=== PATIENT | female | born 1985 | race Caucasian/White ===

== ENCOUNTER → 2018-09-28 | Outpatient (CLI) | payer OTHER, SELFPAY ==
[2018-09-28 11:13] LABS: Hematocrit 40.7 % (37-47); Hemoglobin 13.8 g/dl (12.0-15.0); Mean Corp Hgb Conc 33.9 g/gl (32-36); Mean Corpuscular Hgb 31.4 pg (27.0-32.0); Mean Corpuscular Volume 92.7 fL (81-99); Mean Platelet Vol. 10.6 fl (6.2-12.0); Platelet Count 162 K/mm3 (150-450); RBC Distribution Width CV 13.4 % (11.6-14.6); RBC Distribution Width SD 44.1 fl (35.1-43.9); Red Blood Count 4.39 M/mm3 (4.2-5.4); White Blood Count 9.6 K/mm3 (4.4-11.0)
[2018-09-28 11:17] LABS: Scan Indicated on CBC? Y/N NO
[2018-09-28 11:20] LABS: ALB/GLOB Ratio 0.7 RATIO (0.9-2.4); AST(SGOT) 27 U/L (15-37); Alanine Aminotransfer ALT/SGPT 39 U/L (13-56); Albumin, Serum 2.7 g/dL (3.2-5.0); Alkaline Phosphatase 134 U/L (45-117); Anion Gap 7 (5-15); BUN 7 mg/dL (7-18); BUN/Creat Ratio 13.7 RATIO (10-20); Calcium,Total 8.5 mg/dL (8.5-10.1); Chloride 105 mmol/L (98-107); Creatinine, Serum 0.51 mg/dL (0.55-1.02); EST Glomerular Filtration Rate 146 mL/min (>60); Est Glom Filt Rate - Afr Amer 176 mL/min (>60); Globulin 4.1 g/dL (2.2-4.2); Glucose 78 mg/dL (74-106); Potassium 3.9 mmol/L (3.5-5.1); Protein, Total 6.8 g/dL (6.4-8.2); Sodium Level 136 mmol/L (136-145); Uric Acid 4.4 mg/dL (2.6-6.0)
== END | disposition home or self-care (01) ==
PROVIDERS: Visit Provider Obstetrics & Gynecology
DX: O13.3 Gestational [pregnancy-induced] hypertension without significant proteinuria, third trimester (principal); Z3A.00 Weeks of gestation of pregnancy not specified
CPT/HCPCS: 36415; 80053; 84550; 85027

== ENCOUNTER → 2018-09-30 | Outpatient (CLI) | payer OTHER, SELFPAY ==
[2018-09-30 10:24] LABS: 24 Hour Urine Protein 209.4 mg/24HR (<150 MG/24HR); 24HR. UA Prot. Total Volume 1675 mL; Urine Protein (24 Hour) 12.5 mg/dL (<11.9)
== END | disposition home or self-care (01) ==
LOC: LABSPEC 09:28
PROVIDERS: Visit Provider Obstetrics & Gynecology
DX: O13.9 Gestational [pregnancy-induced] hypertension without significant proteinuria, unspecified trimester (principal); Z3A.00 Weeks of gestation of pregnancy not specified
CPT/HCPCS: 81050; 84156

== ENCOUNTER 2018-10-04 09:40 | Inpatient (IN) | payer OTHER, SELFPAY ==
[2018-10-04] VITALS (18 sets, daily range): BP systolic 117–148; BP diastolic 67–93; PULSE 71–97; RESP 12–18; TEMP 36.2–36.7; O2SAT 96–99; BMI 29.9
[2018-10-04 10:28] LABS: Absolute Lymphocyte Count 1.41 X10^3/ul (0.83-4.51); Absolute Neutrophil Count 6.1 X10^3/uL (2.0-7.7); Basophil# 0.02 X10^3/uL; Basophil% 0.2 % (0-1); Eosinophil# 0.04 X10^3/uL; Eosinophils% 0.5 % (0-5); Hematocrit 41.4 % (37-47); Hemoglobin 14.3 g/dl (12.0-15.0); Lymphocyte # 1.41 X10^3/ul (4.0); Lymphocyte % 17.5 % (19-41); Mean Corp Hgb Conc 34.5 g/gl (32-36); Mean Corpuscular Hgb 31.8 pg (27.0-32.0); Mean Platelet Vol. 10.7 fl (6.2-12.0); Monocyte# 0.43 X10^3/uL; Monocyte% 5.3 % (0-10); Neutrophil # 6.13 X10^3/uL (2.7-7.7); Neutrophil % 75.9 % (47-70); POSITIVE COUNT NO; POSITIVE DIFFERENTIAL NO; POSITIVE MORPHOLOGY NO; Platelet Count 171 K/mm3 (150-450); RBC Distribution Width CV 13.3 % (11.6-14.6); RBC Distribution Width SD 43.6 fl (35.1-43.9); White Blood Count 8.1 K/mm3 (4.4-11.0)
[2018-10-04] MEDS: Lactated Ringers 1,000 ML 999 ML IV (10:33)
[2018-10-04 10:48] LABS: International Normalized Ratio 0.9; Prothrombin Time (Protime)PT. 12.2 SECONDS (11.7-14.9)
[2018-10-04 10:49] LABS: Partial Thromboplast Time 25.2 Seconds (24.1-36.2)
[2018-10-04] MEDS: Lactated Ringers 1,000 ML 150 ML IV (11:12)
[2018-10-04] MEDS: Sodium Citrate/Citric Acid 30 ML UDC PO (11:40)
--- NOTE | 2018-10-04 12:00 | HP.PCM_ITS ---
- Problem List (1) 38 weeks gestation of Status: Acute (2) Gestational hypertension Status: Acute Qualifiers: Trimester: third trimester Qualified Code(s): O13.3 - Gestational [-induced] hypertension without significant proteinuria, third trimester History and Physical Date of Admission: 10/04/18 Date: 10/04/2018 Name: MYRIAM MCCLELLAND Age: 33 Date of : 1985 Myriam Mcclelland, a 33 year old female 2 para 1 0 0 1, presents for Repeat on October 04, 2018 at 12:00 with gestational hypertension. [facility] MEDICATIONS HISTORY: Current medications prescribed by our practice are: 1. Protonix 40 mg tablet,delayed release, one tab PO daily 2. Zofran 4 mg tablet, one tab PO every 6 hours prn nausea Patient is also takin. fish oil-dha-epa 1,200 mg-144 mg-216 mg capsule, One pill by mouth once a day ALLERGIES: NKDA Infections - Bronchitis, Chicken pox, influenza 2017, strep throat, walking pneumonia Illnesses - anxiety- mild. Accidents - no injuries of consequence Hospitalizations - Childbirth Review of Systems: SOCIAL HISTORY: Alcohol Use - socially not while Smoking - Was social smoker. Rare in the past year. Diet - balanced Diet and Quit coffee. Water intake tries for one quart daily. Lifestyle - low stress lifestyle and Exercise - Active work. Enc to walk 20 min daily. Seat Belt Use - most of the time Employer - [employer]. Job Description - dialysis in 8 hospitals. Illicit Drug Use - denies use of street drugs Sexual Activity - multiple sexual partners and in the past Residence - 2 story home live w and son and two dogs. Place of - [place] Hours Worked - 40 hours per week Spouse-Sig Other Name - Conrado Spouse-Sig Other Occupation - food production machine operator Spouse-Sig Other Phone No - [phone] Children Name(s) - Bert Control - FAMILY HISTORY: Father: Hypertension. Maternal Grandfather: Prostate cancer. Paternal Grandmother: Hypertension. Paternal Grandfather: ? cancer. MENSTRUAL HISTORY: LMP Known?- DefiniteAmount/Duration - 5 days, Regularity - Regular, Frequency - monthly days, LMP - 01/09/18, Age Onset Menarche - 11 PAST PREGNANCIES: Total Pregnancies - 2; Full Term Pregnancies - 1; Premature - 0; Abortions, Induced - 0; Abortions, Spontaneous - 0; Ectopics - 0; Multiple Births - 0; Living Children - 1 SURGICAL HISTORY: 1. liposuction 2015 ; - 2. 11/22/2003 breast augmentation ; - 3. 06/14/2009 primary c section ; - PHYSICAL EXAM BP- 122/87 Sitting, Right arm, regular cuff Weight- 142.50674 lbs Height- 63.50 inch BMI:24.81 CONSTITUTIONAL - NAD, well nourished, and well developed SKIN - No rash, lesions, or ulcers HEENT - Normocephalic, PERRLA, EOMI NECK - No nodes, no nuchal rigidity and thyroid normal size and texture LUNGS - CTA x2 without wheezes, crackles or rales CARDIAC - Regular rate and rhythm without rubs, murmurs, or gallops ABDOMEN - Without hepatosplenomegaly, distention, masses, rebound, or guarding; normal bowel sounds; no hernias; gravid EXTREMITIES - No edema or calf tenderness NEUROLOGICAL - no gross motor deficits PSYCHIATRIC - A and O to time, place, person, mood and affect UTERUS - 38w size FHR 125 bpm ASSESSMENT/PLAN: 1. Gestational hypertension 2. History prior section Proceed with section as planned. Consents signed. Blood transfusion acceptable. Patient given opportunity to ask questions and questions answered to her satisfaction.
[2018-10-04] MEDS: Cefazolin 2 GM in 0.9% Normal Saline 100 ML IV (12:02)
[2018-10-04] MEDS: Oxytocin 30 units/NS 500 ml 30 UNITS/500 ML IV.SOLN 167 UNITS IV (12:35)
--- NOTE | 2018-10-04 13:01 | PCM.OPRPT ---
Problem List (1) 38 weeks gestation of Status: Acute (2) Gestational hypertension Status: Acute Qualifiers: Trimester: third trimester Qualified Code(s): O13.3 - Gestational [-induced] hypertension without significant proteinuria, third trimester Report of Operation Date of Procedure: 10/04/18 Pre-Operative Diagnosis: 38 2/7 weeks gestation, gestational hypertension, prior Post-Operative Diagnosis: 38 2/7 weeks gestation, gestational hypertension, Prior Surgery/Procedure Performed:: Repeat low transverse section Description of Surgical Findings:: normal uterus and adnexa FEMALE - 3166g Apgars 9,9 desulfurizer operator: Ruth Chaudhary Type of Anesthesia:: Spinal Anesthesiologist: Mika Chandler Estimated Blood Loss (mL): 600 Fluids Replaced: 1500 ml Description of Procedure: The patient was taken to the operating room, sign in performed and spinal analgesia was administered. She is placed in a dorsal supine position with left lateral tilt. The perineum and abdomen were prepped and draped in sterile fashion. And the spinal was found to be adequate. A Pfannenstiel incision was made using a scalpel and brought down to incise the subcutaneous tissue and rectus fascia at the midline. Subcutaneous tissue was bluntly dissected off the fascia laterally. The fascial incision was dissected laterally and cephalad using curved Navarrete scissors. The superior leaflet of the rectus fascia was grasped using Donell clamps and bluntly dissected and sharply dissected from the underlying rectus muscle. In a similar fashion the inferior rectus fascia was dissected from the underlying muscle. The rectus muscles were bluntly at the midline. The peritoneum was identified and entered sharply. The peritoneal incision was extended. The bladder blade was placed into the abdomen and the vesicouterine peritoneal fold identified. The fold was incised and a bladder flap created. Bladder blade was then repositioned to the abdomen. A low transverse hysterotomy was made using the [Metzenbaum scissors] to level of the membranes. The hysterotomy was extended bluntly cephalad and caudad. The membranes were then ruptured revealing clear fluid. The head was elevated and brought to the level of the hysterotomy and the delivered revealing vigorous [female] infant. The cord was doubly clamped and cut after 60 seconds. The infant was passed to awaiting [nursery personnel]. The placenta was [expressed] from the uterus and appeared intact on inspection. The uterus was cleared of debris. The hysterotomy was then repaired using 0 Vicryl running lock suture. A second imbricating layer was also placed for additional hemostasis. The bladder blade was removed. The anterior cul-de-sac was cleared of debris. The peritoneum was reapproximated using 2-0 Vicryl running suture. The rectus fascia was closed using 0 STratafix running suture. The subcutaneous tissue was reapproximated using 2-0 Vicryl. The skin was closed using 4-0 Monocryl subcuticularly by the OTR FLATBED DRIVER under my supervision. Mepilex occlusive dressing was placed over the incision. The fundus was firm. The patient was then transferred to the recovery room without complication. Sponge, instrument, and needle counts were correct ?2. - Complications none - Admit VTE Documentation VTE Present on Admission: No VTE Mechan Device Prophylaxis: SCD's VTE Pharm Prophylaxis ordered?: No
[2018-10-04] MEDS: Lactated Ringers 1,000 ML 100 ML IV ×2 (13:20→23:48)
[2018-10-04] MEDS: Ketorolac 30 MG/ML Syringe IV (19:09)
[2018-10-04] MEDS: Acetaminophen 500 MG Tablet 1000 MG PO (23:47)
[2018-10-05] VITALS (11 sets, daily range): BP systolic 117–128; BP diastolic 58–86; PULSE 68–91; RESP 14–18; TEMP 36.7–36.9; O2SAT 94–98
[2018-10-05] MEDS: Ketorolac 30 MG/ML Syringe IV ×4 (01:01→18:44)
[2018-10-05 05:28] LABS: Hematocrit 32.6 % (37-47); Mean Corp Hgb Conc 33.7 g/gl (32-36); Mean Corpuscular Hgb 31.9 pg (27.0-32.0); Mean Corpuscular Volume 94.5 fL (81-99); Mean Platelet Vol. 10.1 fl (6.2-12.0); Platelet Count 151 K/mm3 (150-450); RBC Distribution Width CV 13.2 % (11.6-14.6); RBC Distribution Width SD 43.5 fl (35.1-43.9); Red Blood Count 3.45 M/mm3 (4.2-5.4); Scan Indicated on CBC? Y/N NO; White Blood Count 9.1 K/mm3 (4.4-11.0)
[2018-10-05] MEDS: Acetaminophen 500 MG Tablet 1000 MG PO (10:45)
[2018-10-05] MEDS: Senna/Docusate Sodium 1 Tablet PO (10:45)
[2018-10-05] MEDS: Pantoprazole Sodium 40 MG Tablet PO (10:46)
[2018-10-05] MEDS: Prenatal Vits Tablet 1 TABLET PO (10:46)
[2018-10-05] MEDS: 0.9% Saline Lock 10 ML Syringe IV (13:42)
[2018-10-06] VITALS (7 sets, daily range): BP systolic 118–132; BP diastolic 68–94; PULSE 68–98; RESP 14–18; TEMP 36.7–37.1
[2018-10-06] MEDS: Ibuprofen 600 MG Tablet PO ×3 (02:21→23:52)
[2018-10-06] MEDS: Acetaminophen 500 MG Tablet 1000 MG PO ×2 (04:24→17:47)
--- NOTE | 2018-10-06 07:50 | PCM.PN.OB ---
Subjective: POD#2 Repeat C/S Doing OK. Nursing well. CC of BOWER bilateral temporal, pounding in nature. pain also at neck to occipital region. Pain at lower back. BOWER is not positional, does not resolve with lying flat. is taking ONLY Tylenol and ibuprofen. Has not taken any narcotic pain med. No h/o BOWER. concerns about taking med with nursing. Objective: Sitting up in bed, holding sleeping baby - Physical Exam General: Alert, Oriented x3, Cooperative, No apparent distress HEENT: Atraumatic, EOMI Neck: Supple Abdomen: Soft - minimally tender c/w postop status. Fundus firm NT approx 2 cm inferior to umbilicus Skin: Incision - Mepilex dressing CDI. Neurological: Cranial nerves II-XII grossly intact Psych/Mental Status: Normal Affect Vital Signs Temp Pulse Resp BP Pulse Ox 98.1 F 98 18 127/94 H 97 // 02:00 10/06/18 02:00 10/06/18 02:00 10/06/18 02:00 10/05/18 20:10 Oxygen Delivery Method Room Air Weight: 76.6 kg Body Mass Index (BMI) 29.9 Intake and Output for Last 24 Hours 07//08 10/16/08 10/17 23:59 23:59 23:59 Intake Total 3755 / 3755 1620 / 1620 Output Total 1100 / 1100 1700 / 1700 Balance 2655 / 2655 -80 / -80 Medical Necessity - Tobacco Use Smoking Status: Never smoker Assessment/Plan All Active Problems 38 weeks gestation of (Acute) Gestational hypertension (Acute) POD#2 Repeat C/S Stable postop. Nursing well. Continue care. Prefers to stay today. #2) BOWER and pain lower back. BOWER not positional. Recommend: OxyIR 5 mg po q 6 hr . If this ineffective, trial of Fioricet. Suspect BOWER more due to stress, sleep deprivation. Continue care.
[2018-10-06] MEDS: Senna/Docusate Sodium 1 Tablet PO (08:59)
[2018-10-06] MEDS: Acetaminophen/Butalbital/Caffe 1 Tablet 2 TABLET PO (08:59)
[2018-10-06] MEDS: Prenatal Vits Tablet 1 TABLET PO (13:13)
[2018-10-06] MEDS: Pantoprazole Sodium 40 MG Tablet PO (13:14)
[2018-10-06] MEDS: oxyCODONE 5 MG Tablet PO (21:17)
[2018-10-07] MEDS: Acetaminophen 500 MG Tablet 1000 MG PO ×2 (02:15→09:52)
[2018-10-07 02:19] VITALS: BP 122/77; PULSE 78; RESP 18; TEMP 36.2
[2018-10-07] MEDS: Ibuprofen 600 MG Tablet PO ×2 (06:00→12:50)
--- NOTE | 2018-10-07 06:02 | PCM.PN.OB ---
Subjective: POD#3 Repeat C/S Feeling much better today. After discussion yesterday she laid down flat and noted no BOWER then. Epidural blood patch placed and this has worked very well. Denies any BOWER. Some pain at incision. States that the ibuprofen is working well for this and does not plan to take OxyIR. Breast feeding. No concerns voiced and would like to go home today. Asking about incision care -- states had joan with her first baby. - Physical Exam General: Alert, Oriented x3, Cooperative, No apparent distress HEENT: Atraumatic, EOMI Neck: Supple Abdomen: Soft - Fundus firm, minimally tender at 1-2 cm inferior to umbilicus. Skin: Incision - Mepilex dressing CDI. Neurological: Cranial nerves II-XII grossly intact Psych/Mental Status: Normal Affect Vital Signs Temp Pulse Resp BP Pulse Ox 97.1 F L 78 18 122/77 H 97 /18/ 02:19 /18/19 02:19 18/ 02:19 18/ 02:19 10/05/18 20:10 Oxygen Delivery Method Room Air Weight: 76.6 kg Body Mass Index (BMI) 29.9 Intake and Output for Last 24 Hours 07/16/19 /17/19 /18/19 23:59 23:59 23:59 Intake Total 1620 / 1620 Output Total 1700 / 1700 Balance -80 / -80 Medical Necessity - Tobacco Use Smoking Status: Never smoker Assessment/Plan All Active Problems 38 weeks gestation of (Acute) Gestational hypertension (Acute) POD#3 Repeat C/S Stable postop. Nursing well. Continue care. #2) BOWER and pain lower back. Spinal BOWER, full resolution after epidural blood path. Dischg home today. RTO in 1-2 wk for postop incision check.
--- NOTE | 2018-10-07 06:07 | PCM.DC.SUM ---
Discharge Date and Diagnosis Date of Admission: 10/04/18 - 38 2/7 wk gest HTN. Repeat C/S Date of Discharge: 10/07/18 - Same Spinal BOWER, resolved. Hospital Course and Treatment Operations: - - Repeat C section delivery. Epidural blood patch Summary of Care Provided: The patient is a 33 year old female presents for repeat C section at 38 2/7 wk EGA with gestational HTN. Admitted for repeat C/S on 10/04/18 . Delivery/ surgery uncomplicated; delivered a branham viable female. Ap 9/9 3166 gm/ Preop Hgb 14.3 g/dl Postop Hgb 11.0 g/dl AVSS Postoperative course complicated by spinal BOWER . Epidural blood patch placed on POD#2 with full resolution of BOWER. Requesting disvchg home POD#3. Home RTO in 1-2 wk for postop incision check, prn sooner. - Physical Exam Vital Signs Temp Pulse Resp BP Pulse Ox 97.1 F L 78 18 122/77 H 97 10/07/18 02:19 10/07/18 02:19 10/07/18 02:19 10/07/18 02:19 10/05/18 20:10 Oxygen Delivery Method Room Air Weight: 76.6 kg Body Mass Index (BMI) 29.9 Intake and Output for Last 24 Hours 10/05/18 10/06/18 10/07/18 23:59 23:59 23:59 Intake Total 1620 / 1620 Output Total 1700 / 1700 Balance -80 / -80 Home Medications: Medications to take at Discharge Pantoprazole Sodium [Protonix] 40 mg PO DAILY 10/04/18 Vits [Prenatabs FA] 1 tab PO DAILY 10/04/18 Medical Necessity - Tobacco Use Smoking Status: Never smoker Meaningful Use Info Meaningful Use Diagnoses (Choose all that apply): None applicable
[2018-10-07 09:15] VITALS: BP 131/84; PULSE 78; RESP 16; TEMP 36.4
[2018-10-07] MEDS: Prenatal Vits Tablet 1 TABLET PO (09:52)
[2018-10-07] MEDS: Pantoprazole Sodium 40 MG Tablet PO (09:52)
--- NOTE | 2018-10-07 12:40 | DCINST_ITS ---
Discharge Diet: No Restrictions Discharge Activity: May not drive while taking narcotic pain medications., May Shower, May Take a Tub Bath May resume sexual activity in: 4-6 weeks Additional Activity Instructions:: Nothing in the vagina for 4-6 weeks. You may return to work/school in 6 weeks. Change Dressing in (Days):: 7 Remove Dressing in (days):: 7 Cleanse incision/area with: Soap & Water, Keep Dressing Clean & Dry Additional Instructions: If you experience any of the following, contact your healthcare provider. * Bleeding that soaks a pad every hour for 2 hours * Fever 100.4 or higher * Unrelieved incision or abdominal pain * Swelling, redness, discharge or bleeding from your incision * Problems urinating (including inability to urinate or burning while urinating). * Visual changes * Severe headache * Flu-like symptoms * Pain or redness in one of both of your breasts * Pain, warmth, tenderness or swelling in your legs, especially the calf area * Frequent nausea and vomiting * Symptoms of depression or anxiety If you experience any of the following, call 911 or go to the nearest Emergency Room. * Chest pain * Problems breathing * Seizure activity * Partial or complete paralysis of a body part, slurred speech, weakness or drooping of the face, or a sudden inability to walk or hold your balance Allergies/Adverse Reactions: Allergies No Known Allergies Allergy (Verified 10/04/18 10:05) Medications to take at Discharge Pantoprazole Sodium [Protonix] 40 mg PO DAILY 10/04/18 Vits [Prenatabs FA] 1 tab PO DAILY 10/04/18 Ibuprofen [Motrin] 600 mg PO Q6H PRN PRN #30 tab 10/07/18 Senna/Docusate Sodium [Senokot-S] 1 - 2 tab PO DAILY PRN #20 tab 10/07/18 The following prescriptions were given: Ibuprofen [Motrin] 600 mg PO Q6H PRN PRN #30 tab PRN Reason: Mild Pain () Transmission Status: Pending to [facility] Senna/Docusate Sodium [Senokot-S] 1 - 2 tab PO DAILY PRN #20 tab PRN Reason: Constipation Transmission Status: Pending to [facility] Follow-Up: Call to make an appointment with your doctor for an incision check in 1-2 weeks. You will also need a 6 week post- follow up appointment. Test results from this visit will be discussed in further detail at your follow- up appointment, if applicable. Please Follow Up With: Caro Burton MD - [phone] When: Call to make an appointment for an incision check in 2 weeks. Proposed Discharge Date: 10/07/18
== END 2018-10-07 13:10 | disposition home or self-care (01) | DRG 788 ==
PROVIDERS: Admitting Provider Obstetrics & Gynecology; Referring Provider Obstetrics & Gynecology; Visit Provider Obstetrics & Gynecology
PROC: 10D00Z1 Extraction of Products of Conception, Low, Open Approach (ICD-10-PCS; CPT 59514; principal; 2018-10-04 11:45)
DX: O13.4 Gestational [pregnancy-induced] hypertension without significant proteinuria, complicating childbirth (principal); Z3A.38 38 weeks gestation of pregnancy; Z37.0 Single live birth; O89.4 Spinal and epidural anesthesia-induced headache during the puerperium
CPT/HCPCS: 85025; 85027; 85610; 85730; 86850; 86900; 99218; J7120; A4216; G0378; J2405

== ENCOUNTER → 2018-10-09 10:00 | Outpatient (CLI) | payer OTHER, SELFPAY ==
[2018-10-04 09:59] VITALS: BMI 29.9
== END ==
PROVIDERS: Visit Provider Obstetrics & Gynecology
DX: O92.79 Other disorders of lactation (principal)
CPT/HCPCS: 96152

== ENCOUNTER → 2018-10-21 | Outpatient (CLI) | payer OTHER, SELFPAY ==
[2018-10-04 09:59] VITALS: BMI 29.9
== END | disposition home or self-care (01) ==
PROVIDERS: Referring Provider Obstetrics & Gynecology; Visit Provider Obstetrics & Gynecology
DX: Z39.1 Encounter for care and examination of lactating mother (principal)
CPT/HCPCS: 96152

== ENCOUNTER → 2018-12-25 12:55 | Outpatient (CLI) | payer OTHER, SELFPAY ==
[2018-10-04 09:59] VITALS: BMI 29.9
== END ==
PROVIDERS: Referring Provider Obstetrics & Gynecology; Visit Provider Obstetrics & Gynecology
DX: O92.79 Other disorders of lactation (principal)
CPT/HCPCS: 96152

== ENCOUNTER → 2019-05-10 11:55 | Outpatient (CLI) | payer OTHER, SELFPAY ==
[2018-10-04 09:59] VITALS: BMI 29.9
== END ==
PROVIDERS: Referring Provider Obstetrics & Gynecology; Visit Provider Obstetrics & Gynecology
DX: O92.79 Other disorders of lactation (principal)
CPT/HCPCS: 96158

== ENCOUNTER → 2020-09-26 09:59 | Outpatient (CLI) | payer BC, OTHER, SELFPAY ==
[2018-10-04 09:59] VITALS: BMI 29.9
[2020-09-26 12:45] LABS: Hematocrit 46.2 % (37-47); Hemoglobin 15.3 g/dL (12.0-15.0); Mean Corp Hgb Conc 33.1 g/dL (32-36); Mean Corpuscular Volume 93.5 fL (81-99); Mean Platelet Vol. 9.9 fl (6.2-12.0); Platelet Count 275 K/mm3 (150-450); RBC Distribution Width CV 12.4 % (11.6-14.6); RBC Distribution Width SD 42.7 fl (35.1-43.9); Red Blood Count 4.94 M/mm3 (4.2-5.4); White Blood Count 5.7 K/mm3 (4.4-11.0)
[2020-09-26 13:09] LABS: Ferritin 28 ng/mL (8-252); Iron 106 ug/dL (50-170); Iron Binding Capacity,Total 364 ug/dL (250-450); T4 Free Direct 0.91 ng/dL (0.76-1.46); Thyroid Stim Hormone (TSH) 1.11 uIU/mL (0.358-3.74)
[2020-09-28 18:37] LABS: HPV APTIMA, High Risk Negative (Negative)
== END ==
PROVIDERS: Referring Provider Obstetrics & Gynecology; Visit Provider Obstetrics & Gynecology
DX: N92.0 Excessive and frequent menstruation with regular cycle (principal); R53.83 Other fatigue; Z12.4 Encounter for screening for malignant neoplasm of cervix
CPT/HCPCS: 36415; 82728; 83540; 83550; 84439; 84443; 85027; 87624; 88175; G0145